=== PATIENT | male | born 1985 | race Caucasian/White ===

== ENCOUNTER 2016-08-28 12:08 | Observation (INO) | payer MEDICAID, OTHER ==
[~2016-08-28] VITALS: Ht 175.3 cm; Wt 90.7 kg
[2016-08-28 13:30] LABS: Basophils # (auto) 0 uL; Basophils % (auto) 0.1 % (0.0-2.0); Eosinophils # (auto) 0.1 uL; Hematocrit 45.5 % (41.0-53.0); Hemoglobin 15.1 g/dL (13.5-17.5); Lymphocytes # (auto) 1.5 uL; Lymphocytes % (auto) 18.8 % (10.0-50.0); Mean Corpuscular Hemoglobin 30.5 pg (28.0-32.0); Mean Corpuscular Hgb Conc. 33.1 g/dL (32.0-36.0); Mean Corpuscular Volume 92.2 fL (80.0-100.0); Mean Platelet Volume 6.7 fL (7.4-10.4); Monocytes # (auto) 0.6 uL; Monocytes % (auto) 7.7 % (0.0-12.0); Neutrophils # (auto) 5.7 uL; Neutrophils % (auto) 72.4 % (37.0-80.0); Platelet Count (auto) 403 10^3/uL (140-450); Red Cell Distribution Width 13.2 % (11.6-16.0); White Blood Cell 7.9 10^3/uL (4.4-10.8)
[2016-08-28 13:54] LABS: Salicylate 2.7 mg/dL (2.8-20.0)
[2016-08-28 13:56] LABS: Albumin 3.8 g/dL (3.4-5.0); Anion Gap 10 (5-15); Aspartate Aminotransferase 19 U/L (15-37); BUN/Creatinine Ratio 10.4; Blood Urea Nitrogen 8 mg/dL (7-18); Calcium 8.3 mg/dL (8.5-10.1); Carbon Dioxide 26 mmol/L (21-32); Chloride 104 mmol/L (98-107); GFR African American 153 mL/min; GFR Non-African American 126 mL/min; Glucose 79 mg/dL (74-106); Sodium 140 mmol/L (136-145)
[2016-08-28 13:58] LABS: Alkaline Phosphatase 63 U/L (45-117); Bilirubin, Total 0.3 mg/dL (0.2-1.0)
[2016-08-28 14:05] LABS: Urine Bilirubin Negative (Negative); Urine Blood 1+ /uL (Negative); Urine Color Yellow (Yellow); Urine Glucose Normal (Normal); Urine Ketone 2+ (Negative); Urine Mucus FEW (None Seen); Urine Nitrite Negative (Negative); Urine RBC 35 /hpf (0 - 3)
[2016-08-28] MEDS ORDERED: POTASSIUM CHL 20 Meq TABLET PO ONE (15:30)
[2016-08-28] MEDS ORDERED: ACETAMINOPHEN 325 MG TAB PO ONE (17:15)
[2016-08-31] MEDS ORDERED: LORazepam 0.5 MG TAB PO ONE (13:00)
[2016-08-31] MEDS ORDERED: LORazepam 0.5 MG TAB ONE (13:14)
[2016-09-01 00:08] VITALS: BP 132/76
== END 2016-09-01 11:00 | disposition home or self-care (01) | DRG 812 ==
LOC: EDBD 12:08 → ER 12:08 → OVERFLOW 12:59 → ER 09-01 00:10
PROVIDERS: ADMIT Family Medicine; ATTEND Family Medicine
DX: T43.212A Poisoning by selective serotonin and norepinephrine reuptake inhibitors, intentional self-harm, initial encounter (principal); F33.2 Major depressive disorder, recurrent severe without psychotic features; Y92.89 Other specified places as the place of occurrence of the external cause; F17.210 Nicotine dependence, cigarettes, uncomplicated
CPT/HCPCS: 36415; 71010; 80053; 80307; 80320; 80329; 81001; 83735; 85025; 93005; 99285; G0378